=== PATIENT | female | born 1980 | race Caucasian/White ===

== ENCOUNTER 2017-03-06 10:09 | Inpatient (IN) ==
--- NOTE | 2017-03-06 11:03 | Emergency Department Note ---
Tyree Nuno Hilary, am scribing for, and in the presence of, Ralph Gayle MD 10:51. Irwin Nuno Charles R, MD, personally performed the services described in this documentation, ascribed by Martha Clements in my presence, and it is both accurate and complete . Arrival - Arrival Chief Complaint: Shortness of Breath Stated Complaint: ASTHMA ATTACK ED Nursing Triage Note: PT BROUGHT BY EMS FOR C/O COUGH AND SHORTNESS OF BREATH. PT WAS DIAGNOSED WITH BRONCHITIS LAST SATURDAY. GIVEN IV LEVAQUIN AND SOLUMEDROL SATURDAY AT [facility] ER AND HAS CONTINUED HER PO LEVAQUIN WITHOUT IMPROVEMENT. PT RECD 2 DUONEBS EN ROUTE PER EMS. Mode of Arrival: Stretcher Limitations: No Limitations Source: Patient, RN Notes Reviewed - History of Present Illness HPI Narrative: Pt is a 36 y/o female brought to the ED via EMS with c/o coughing and SOB which onset 6 days ago. Pt states that she was diagnosed with bronchitis 6 days ago and given IV Levaquin and Solumedrol 3 days ago at [facility] ER. She reports her throat closing periodically when she coughs and that her cough has not gotten better. Pt has a PMHx of Asthma. No other complaints or problems stated in the ED. Onset (ago): day(s) Consistency: constant Severity: moderate Severity scale (1-10): 2 Allergies/Adverse Reactions: Allergies Allergy/AdvReac Type Severity Reaction Status Date / Time No Known Allergies Allergy Verified 03/06/17 10:25 Home Medications: Home Medications Medication Instructions Recorded Confirmed Type Albuterol Sulfate [Proair HFA] 2 puff INH Q4H PRN 03/06/17 03/06/17 History Albuterol/Ipratropium Neb [Duoneb] 3 ml RESP TX RT Q6H PRN 03/06/17 03/06/17 History Calcium (Carbonate) [Caltrate 600] 600 mg PO QAM 03/06/17 03/06/17 History Cetirizine Tab [ZyrTEC Tab] 10 mg PO QAM 03/06/17 03/06/17 History Estradiol [Estradiol Tab] 2 mg PO QPM 03/06/17 03/06/17 History Fluticasone/Vilanterol [Breo 1 puff INH QAM 03/06/17 03/06/17 History Ellipta 100-25 Mcg INH] Ipratropium/Albuterol Inhaler 1 puff INH QID PRN 03/06/17 03/06/17 History [Combivent Respimat Inhaler] Montelukast Tab [Singulair Tab] 10 mg PO BEDTIME 03/06/17 03/06/17 History Sertraline [Zoloft] 100 mg PO QAM 03/06/17 03/06/17 History Topiramate [Trokendi XR] 200 mg PO QPM 03/06/17 03/06/17 History Ziprasidone Cap [Geodon Cap] 40 mg PO DAILY@1700 03/06/17 03/06/17 History buPROPion [Wellbutrin] 100 mg PO BID 03/06/17 03/06/17 History Review of System - Review of System 12 point system: reviewed and no additional remarkable complaints except as stated - Review of System Constitutional: Absent: fever Head/Ears/Nose/Throat: Present: sore throat, other (bronchial spasms) Respiratory: Present: cough, respiratory distress (SOB), wheezing Medical,Surgical,& Family Hx - Medical History Psychological: History of: Anxiety Disorders, Depression Neurology: History of: Migraine Respiratory: History of: Asthma, Bronchitis - Social History Smoking Status: Never smoker Frequency of Alcohol Use: None Type of Drug Use: None Exam Vital Signs: Vital Signs Temperature 97.1 F L 03/06/17 10:10 Pulse Rate 100 H 03/06/17 10:10 Respiratory Rate 18 03/06/17 10:10 Blood Pressure 93/73 03/06/17 10:10 O2 Sat by Pulse Oximetry 99 03/06/17 10:10 - General General appearance: alert, in no apparent distress - Head Head exam: Present: atraumatic, normocephalic - Eye Eye exam: Present: normal appearance, PERRL, EOMI - ENT ENT exam: Present: mucous membranes moist, TM's normal bilaterally. Absent: mucous membranes dry - Neck Neck exam: Present: full ROM, trachea midline. Absent: tenderness - Chest Chest inspection: Present: symmetric chest wall rise. Absent: tenderness - Respiratory Respiratory exam: Present: accessory muscle use, prolonged expiratory phase, wheezes. Absent: normal lung sounds bilaterally (decreased breath sounds) - Cardiovascular Cardiovascular exam: Present: regular rate, normal rhythm, normal heart sounds. Absent: murmur, rubs, gallop - Abdominal Exam Abdominal exam: Present: soft, normal bowel sounds. Absent: distention, tenderness - Extremities Exam Extremities exam: Present: full ROM, pedal edema (+1 ). Absent: tenderness - Back Exam Back exam: Present: full ROM. Absent: tenderness - Neurological Exam Neurological exam: Present: alert, oriented X3, CN II-XII intact. Absent: motor sensory deficit - Psychiatric Psychiatric exam: Present: normal affect, normal mood - Skin Skin exam: Present: warm, dry, intact, normal color. Absent: rash Course - Consultations Consultation #1: Hospitalist will admit patient Time: 12:47 Results - Labs CBC & BMP: 03/06/17 12:17 Lab Results: I have reviewed the patients labs Labs: Microbiology 03/06/17 11:32 Nasal Aspirate Influenza Types A,B Antigen (BENEDICTO) - Final Negative for Influenza A Ag Negative for Influenza B Ag Laboratory Tests 03/06/17 03/06/17 03/06/17 11:32 11:32 12:00 WBC RBC Hgb Hct Neut # (Auto) ABG Total CO2 18.8 L Urine pH 5.0 Ur Specific [place] 1.015 Urine Urobilinogen < 2.0 H Urine RBC 1 Urine WBC 1 Urine Opiates Screen Positive H Ur Barbiturates Screen Positive H Ur Phencyclidine Scrn Negative U Amphetamine/Methamph Negative U Benzodiazepines Scrn Positive H U Cocaine Metab Screen Negative U Cannabinoids Screen Negative 03/06/17 12:17 WBC 12.4 H RBC 4.37 Hgb 13.8 Hct 40.9 Neut # (Auto) 7.6 H ABG Total CO2 Urine pH Ur Specific [place] Urine Urobilinogen Urine RBC Urine WBC Urine Opiates Screen Ur Barbiturates Screen Ur Phencyclidine Scrn U Amphetamine/Methamph U Benzodiazepines Scrn U Cocaine Metab Screen U Cannabinoids Screen - Diagnostic Findings Procedure: Chest x-ray: report reviewed by me (No acute cardiopulmonary pathology) Disposition Clinical Impression: Asthma with exacerbation, Acute exacerbation of chronic obstructive airways disease, Bronchitis Case discussed with: patient Disposition: Still a Patient Condition: Stable Time of Disposition: 12:47
[2017-03-06] MEDS ORDERED: ONDANSETRON 4 MG/2 ML VIAL IV STA (11:26)
[2017-03-06] MEDS ORDERED: methylPREDNISolone SOD SUC 125 MG/2 ML VIAL IV STA (11:26)
[2017-03-06] MEDS ORDERED: MAGNESIUM SULF RIDER 2 GM in PREMIX 1 EACH IV STA (11:26)
[2017-03-06] MEDS ORDERED: SODIUM CHLORIDE 0.9% 500 ML IV STA (11:26)
--- NOTE | 2017-03-06 11:52 | XRay Report ---
Exam: XR chest 2V Date: 03/06/2017 11:27 AM Indication: Shortness of breath Comparison: 12/31/2011 Technical: PA lateral Findings: The heart, lungs, mediastinum and bony thorax reveal no acute findings. Impression: 1. No acute cardiopulmonary pathology PROCEDURE INTERPRETED AT [facility] DEPARTMENT OF RADIOLOGY Final Report Signed by: Dr. Jl Sultana
[2017-03-06 12:04] LABS: Allen Test Positive; Pt O2 Delivery Device Room Air
[2017-03-06 12:07] LABS: ABG Base Excess -2.3 MMOL/L (-2.5-2.5); ABG HCO3 22.5 MMOL/L (20-26); ABG Oxygen Saturation 97.1 % (95-100); ABG PH 7.402 (7.35-7.45); ABG PO2 92.6 MM HG (80-95); ABG TCO2 18.8 MMOL/L (23-27)
[2017-03-06 12:19] LABS: Apearance,Urine Slightly Hazy (Clear); Bacteria,Urine Occasional /HPF (Few); Bilirubin,Urine Negative (Negative); Blood, Urine Negative (Negative); Glucose,Urine (UA) Negative (Negative); Ketones,Urine Negative (Negative); Mucus,Urine Occasional /LPF (Occasional); Nitrite,Urine Negative (Negative); Protein,Urine Negative; RBC,Urine 1 /HPF (0-4); Squamous Epithelial Cell,Urine Occasional /HPF (0-10); Urine Color Yellow (Yellow); Urine Specific Gravity 1.015 (1.001-1.035); Urine Urobilinogen < 2.0 EU/DL (0.2-1.0); WBC,Urine 1 /HPF (0-6)
[2017-03-06] MEDS ORDERED: methylPREDNISolone SOD SUC 125 MG/2 ML VIAL ONE (12:21)
[2017-03-06] MEDS ORDERED: ONDANSETRON 4 MG/2 ML VIAL ONE (12:21)
[2017-03-06] MEDS ORDERED: MAGNESIUM SULF RIDER 50 ML IV ONE (12:22)
[2017-03-06 12:28] LABS: Basophils # 0.1 10*3/uL (0.0-0.2); Basophils % 0.7 % (0.0-0.8); Eosinophils # 0.1 10*3/uL (0.0-0.87); Eosinophils % 0.7 % (0.00-10.9); Hematocrit 40.9 VOL% (35.7-47.0); Hemoglobin 13.8 GM/DL (12.0-16.0); Immature Granulocytes % 0.8 %; Lymphocytes # 3.9 10*3/uL (1.4-4.0); Lymphocytes % 31.2 % (21.3-54.2); Mean Corpuscular HGB Conc 33.7 GM/DL (32-36); Mean Corpuscular Hemoglobin 32 PG (27-34); Mean Corpuscular Volume 93.6 FL (87-102); Mean Platelet Volume 9.8 FL (9.6-12.0); Monocytes # 0.7 10*3/uL (0.11-0.8); Monocytes % 5.5 % (1.7-12.7); Neutrophils # 7.6 10*3/uL (1.4-7.4); Neutrophils % 61.1 % (38.7-73.9); Platelet Count 342 T/CUMM (130-400); Red Blood Count 4.37 MC/CUMM (3.8-5.5); Red Cell Distribution Width 13.8 % (9.3-17.3); White Blood Count 12.4 T/CUMM (4-12)
[2017-03-06 12:32] LABS: Barbiturates Screen,Urine Positive (Negative); Benzodiazepines Screen,Urine Positive (Negative); Cannabinoid Screen,Urine Negative (Negative); Opiate Screen,Urine Positive (Negative); Phencyclidine Screen,Urine Negative (Negative)
--- NOTE | 2017-03-06 12:48 | EKG Report ---
Stationary ECG Study [facility] ER Test Date: 03/06/2017 12:39:44 PM Pat Name: ALVA HOUSTON Department: Room: Gender: F Wrist Closer: : 1980 Requested by: Ralph Medellin Order Number: [id number] Reading MD: RADHA CEJA Intervals [place] Rate: 91 P: 45 [place]: 126 QRS: 41 QRSD: 85 T: 1 QT: 340 QTc: 389 Interpretive Statements SINUS RHYTHM Electronically Signed On 03-06-17 14:43:15 CDT by RADHA CEJA [email or web address]
[2017-03-06] MEDS ORDERED: cefTRIAXone 1,000 MG in SODIUM CHLORIDE 0.9% 100 ML IV STA (12:49)
[2017-03-06 13:07] LABS: Alanine Aminotransferase 32 U/L (13-56); Albumin 3.7 G/DL (3.4-5.0); Alkaline Phosphatase 84 U/L (45-117); Aspartate Amino Transferase 19 U/L (0-37); Bilirubin,Total < 0.39 MG/DL (0.2-1.0); Blood Urea Nitrogen 22 MG/DL (7-18); Calcium 9.4 MG/DL (8.5-10.1); Glucose 87 MG/DL (74-106); Magnesium 2.3 MG/DL (1.8-2.4); Osmolality,Calculated 278.5 MOS/KG (273-304); Potassium 3.9 MMOL/L (3.5-5.1); Sodium 139 MMOL/L (136-145); Total Protein 7.2 G/DL (6.4-8.3); Troponin I Only < 0.015 NG/ML (0.00-0.045)
--- NOTE | 2017-03-06 13:32 | Hospitalist History & Physical ---
Assessment and Plan - Time spent with patient Time spent with patient: Greater than 30 minutes (1) Asthma with exacerbation Status: Acute Assessment and plan: Admit for observation 03/06/17 Start duonebs IV steroids IV antibiotics will discuss further with Dr Moyer for further recommendations with care. Current Visit: Yes (2) Bronchitis Status: Acute Current Visit: Yes History of Present Illness Chief complaint: shortness of breath/asthma exac. History of present illness: Ms. Izaguirre is a 36 year old white female wPMHx of anxiety, depression, Asthma, Bronchitis, Migraine presented to the ED for further evaluation of worsening shortness of breath since Saturday with non-productive cough and feeling "airway/ throat tightness". She reports this a.m about 3 she felt like "I could not get my breath in" and could not stop coughing. She reports seeing PCP at clinic on and was diagnosis with bronchitis HOWEVER, over the weekend, she continued to get worse and went to the ED and they placed her on Levaquin and solumedrol. She denies chest pain, fever, or chills. IN ED: No acute cardiopulmonary path. LABS significant: WBC 12.4, BUN 22 & Creatinine 1.20, Toxicology positive for Opiates, Barbiturates and Benzodiazepines. At exam HR 100, O2 SAT 100% on Room Air, BP 114/82. Denies smoking, alcohol use and drug use. PCP: Dr García Flu Vaccine: yearly After discussion with Dr Gayle in the ED and Dr Moyer with Hospital Services, it was agreed to admit patient for observation. Home medications to reviewed and reconciliation to follow. Home Medications Medication Instructions Recorded Confirmed Type Albuterol Sulfate [Proair HFA] 2 puff INH Q4H PRN 03/06/17 03/06/17 History Albuterol/Ipratropium Neb [Duoneb] 3 ml RESP TX RT Q6H PRN 03/06/17 03/06/17 History Calcium (Carbonate) [Caltrate 600] 600 mg PO QAM 03/06/17 03/06/17 History Cetirizine Tab [ZyrTEC Tab] 10 mg PO QAM 03/06/17 03/06/17 History Estradiol [Estradiol Tab] 2 mg PO QPM 03/06/17 03/06/17 History Fluticasone/Vilanterol [Breo 1 puff INH QAM 03/06/17 03/06/17 History Ellipta 100-25 Mcg INH] Ipratropium/Albuterol Inhaler 1 puff INH QID PRN 03/06/17 03/06/17 History [Combivent Respimat Inhaler] Montelukast Tab [Singulair Tab] 10 mg PO BEDTIME 03/06/17 03/06/17 History Sertraline [Zoloft] 100 mg PO QAM 03/06/17 03/06/17 History Topiramate [Trokendi XR] 200 mg PO QPM 03/06/17 03/06/17 History Ziprasidone Cap [Geodon Cap] 40 mg PO DAILY@1700 03/06/17 03/06/17 History buPROPion [Wellbutrin] 100 mg PO BID 03/06/17 03/06/17 History Allergies Allergy/AdvReac Type Severity Reaction Status Date / Time No Known Allergies Allergy Verified 03/06/17 10:25 Medical,Surgical,& Family Hx - Medical History Psychological: History of: Anxiety Disorders, Depression Neurology: History of: Migraine Respiratory: History of: Asthma, Bronchitis - Surgical History Additional Surgical History: Facial reconstruction at age 16 y/o - Social History Smoking Status: Never smoker Frequency of Alcohol Use: None Type of Drug Use: None Marital Status: Single Lives With:: Mother and grandmother live with her Functional capacity: independent ambulation 12 point system: reviewed and no additional remarkable complaints except as stated - Constitutional Constitutional: Present: fatigue. Absent: chills, fever(s) - EENT Nose, mouth and throat: Absent: hoarseness, sore throat - Cardiovascular Cardiovascular: Present: dyspnea. Absent: chest pain at rest, chest pain with activity - Respiratory Respiratory: Present: dyspnea, wheezing. Absent: change in phlegm color - Psychiatric Psychiatric: Absent: anxiety Exam - Constitutional Vitals: Period Temp Pulse Resp BP Sys/Garcia Pulse Ox Last 24 Hr 97.1 F-97.1 F 100-100 18-18 93-93/73-73 99 General appearance: no acute distress, over weight - Head Head exam: Present: normal inspection - Eye Eye exam: Present: EOMI Pupils: Present: DARIUSZ - Neck Neck exam: Present: normal inspection - Respiratory Respiratory exam: Present: wheezes (expiratory) - Cardiovascular Cardiovascular exam: Present: regular rate and rhythm - GI/Abdominal GI/Abdominal exam: Present: normal bowel sounds, soft. Absent: tenderness, rebound - Extremities Exam Extremities exam: Present: full ROM. Absent: edema - Neurological Exam Neurological exam: Present: alert, oriented X3 - Psychiatric Psychiatric exam: Present: normal affect, normal mood. Absent: agitated, anxious - Skin Skin exam: Present: normal color, warm, dry Results - Labs CBC & BMP: 03/06/17 12:17 03/06/17 12:17 Lab Results: I have reviewed the past 24 hour labs Labs: Troponin negative - Diagnostic Findings Procedure: Chest x-ray: report reviewed by me (no acute cardiopulmonary pathology)
[2017-03-06] MEDS ORDERED: cefTRIAXone 1,000 MG VIAL ONE (13:54)
[2017-03-06] MEDS ORDERED: methylPREDNISolone SOD SUC 125 MG/2 ML VIAL IV SCH (14:00)
[2017-03-06] MEDS ORDERED: HYDROcod/ACETAMIN 7.5-325 MG/15 ML UDCUP ONE (14:07)
[2017-03-06] MEDS ORDERED: HYDROcod/ACETAMIN 7.5-325 MG/15 ML UDCUP PO STA (14:10)
[2017-03-06] MEDS ORDERED: GLUCAGON 1 MG VIAL IM PRN (14:52)
[2017-03-06] MEDS ORDERED: ACETAMINOPHEN 325 MG TABLET PO PRN (14:52)
[2017-03-06] MEDS ORDERED: DEXTROSE 50% 25 GM/50 ML SYRINGE IV PRN (14:52)
[2017-03-06] MEDS ORDERED: ONDANSETRON 4 MG/2 ML VIAL IV PRN (14:52)
[2017-03-06] MEDS: methylPREDNISolone SOD SUC 125 MG/2 ML VIAL IV SCH (15:24)
[2017-03-06] MEDS: ALBUTEROL/IPRATROPIUM 3 ML NEB RESP TX PRN (15:28)
--- NOTE | 2017-03-06 15:53 | Pulmonology Consult Note ---
Assessment and Plan (1) Migraine headache Status: Acute Assessment and plan: On a long list of medications for this. Defer to primary service or neurology if needed. Current Visit: Yes (2) Asthma with exacerbation Status: Acute Assessment and plan: Patient does not sound bad. Would treat with relatively low-dose Solu-Medrol as well as bronchodilators and empiric antibiotics. She is already been on some steroids and antibiotics for 3 or 4 days. Current Visit: Yes (3) Bronchitis Status: Acute Assessment and plan: She tends to have a chronic cough. Treat it as you with the asthma. Will try her on Delsym for cough suppression. Want to stay away from narcotic cough medicines if we can. Current Visit: Yes (4) Anxiety Status: Acute Assessment and plan: Continuing anti-anxiety medications. May get a little worse on the steroids Current Visit: Yes History of Present Illness Chief complaint: Cough congestion shortness of breath History of present illness: Ms. Izaguirre is a 36 year old female whom I have seen before. She was in the office 2 months ago with an exacerbation of her mild intermittent asthma. She is now on Breo regularly. She is a non-smoker. She has apparently pretty bad problems with migraines and is only a very long list of medications for that and anxiety. She developed a cough and congestion going on the last 3 or 4 days and has seen doctors in the office and emergency room just is not better. She has not had any fever or chills. She has not had any chest pain. She has a difficult time sleeping because of the cough. It is for the most part nonproductive. Home Medications Medication Instructions Recorded Confirmed Type Albuterol Sulfate [Proair HFA] 2 puff INH Q4H PRN 03/06/17 03/06/17 History Albuterol/Ipratropium Neb [Duoneb] 3 ml RESP TX RT Q6H PRN 03/06/17 03/06/17 History Calcium (Carbonate) [Caltrate 600] 600 mg PO QAM 03/06/17 03/06/17 History Cetirizine Tab [ZyrTEC Tab] 10 mg PO QAM 03/06/17 03/06/17 History Estradiol [Estradiol Tab] 2 mg PO QPM 03/06/17 03/06/17 History Fluticasone/Vilanterol [Breo 1 puff INH QAM 03/06/17 03/06/17 History Ellipta 100-25 Mcg INH] Ipratropium/Albuterol Inhaler 1 puff INH QID PRN 03/06/17 03/06/17 History [Combivent Respimat Inhaler] Montelukast Tab [Singulair Tab] 10 mg PO BEDTIME 03/06/17 03/06/17 History Sertraline [Zoloft] 100 mg PO QAM 03/06/17 03/06/17 History Topiramate [Trokendi XR] 200 mg PO QPM 03/06/17 03/06/17 History Ziprasidone Cap [Geodon Cap] 40 mg PO DAILY@1700 03/06/17 03/06/17 History buPROPion [Wellbutrin] 100 mg PO BID 03/06/17 03/06/17 History Allergies Allergy/AdvReac Type Severity Reaction Status Date / Time No Known Allergies Allergy Verified 03/06/17 10:25 12 point system: reviewed and no additional remarkable complaints except as stated - Constitutional Constitutional: Present: fatigue, headache(s) - EENT Nose, mouth and throat: Present: nasal congestion - Cardiovascular Cardiovascular: Present: dyspnea, dyspnea on exertion - Respiratory Respiratory: Present: cough, dyspnea, dyspnea on exertion, wheezing - Musculoskeletal Musculoskeletal: Present: arthralgias, myalgias - Neurological Neurological: Present: headache(s) (Has migraine headaches) - Psychiatric Psychiatric: Present: anxiety, depression Exam (Pulmonay) H&P - Constitutional Vitals: Period Temp Pulse Resp BP Sys/Garcia Pulse Ox Last 24 Hr 97.0 F-97.1 F 79-111 16-20 92-135/51-113 95-100 Exam: Patient's alert oriented somewhat anxious. Vital signs are normal. Pupils react to light. Throat is clear. Neck supple no bruits. Chest is clear. I do not hear any wheezes. Expiratory phase is slightly prolonged. Heart normal rate and rhythm no murmurs no rubs no gallops. Abdomen soft nontender no masses. Extremities no clubbing cyanosis or edema. Calves nontender. Medical,Surgical,& Family Hx - Medical History Psychological: History of: Anxiety Disorders, Depression Neurology: History of: Migraine Respiratory: History of: Asthma, Bronchitis - Family History Family History: Reports;: Family Hypertension - Social History Smoking Status: Never smoker Frequency of Alcohol Use: None Type of Drug Use: None Results - Labs CBC & BMP: 03/06/17 12:17 03/06/17 12:17 Lab Results: I have reviewed the past 24 hour labs - Diagnostic Findings Procedure: Chest x-ray: image reviewed by me (Chest x-ray is clear and within normal limits.)
[2017-03-06] MEDS: PANTOPRAZOLE 40 MG TABLET PO SCH (16:05)
[2017-03-06] MEDS: LEVOFLOXACIN INJ 500 MG in PREMIX 1 EACH IV SCH (16:34)
[2017-03-06] MEDS: SODIUM CHLORIDE 0.9% 1,000 ML IV SCH (16:34)
[2017-03-06] MEDS: ZIPRASIDONE 20 MG CAPSULE PO SCH (16:35)
[2017-03-06] MEDS: INSULIN LISPRO 100 UNIT/ML SUBCUT SCH ×2 (17:44→20:58)
[2017-03-06] MEDS: DEXTROMETHORPHAN ER 6 MG/ML 90 ML/BOTTLE PO PRN (18:11)
[2017-03-06] MEDS: ALBUTEROL/IPRATROPIUM 3 ML NEB RESP TX SCH (18:17)
--- NOTE | 2017-03-06 18:27 | XRay Report ---
XR sinus Clinical Information: Chronic sinusitis and cough Comparison: None Findings: Postsurgical changes are noted at both maxillary sinuses, possibly related to prior facial trauma. Orbits appear intact. Paranasal sinuses otherwise appear clear. There is no suspicious osseous or soft tissue lesion identified. Impression: Negative study PROCEDURE INTERPRETED AT [facility] DEPARTMENT OF RADIOLOGY Final Report Signed by: Emre Gregorio
[2017-03-06] MEDS: MONTELUKAST 10 MG TABLET PO SCH (20:59)
[2017-03-06] MEDS: buPROPion 100 MG TABLET PO SCH (20:59)
[2017-03-06] MEDS: CETIRIZINE 10 MG TABLET PO SCH (20:59)
[2017-03-06] MEDS: ESTRADIOL 2 MG TABLET PO SCH (21:00)
[2017-03-06] MEDS: ENOXAPARIN 40 MG/0.4 ML SYRINGE SUBCUT SCH (21:00)
[2017-03-06] MEDS ORDERED: TROKENDI 200 MG PO SCH (21:00)
[2017-03-07] MEDS: ALBUTEROL/IPRATROPIUM 3 ML NEB RESP TX SCH ×4 (01:34→19:20)
[2017-03-07] MEDS: SODIUM CHLORIDE 0.9% 1,000 ML IV SCH ×3 (01:38→10:26)
[2017-03-07] MEDS: methylPREDNISolone SOD SUC 125 MG/2 ML VIAL IV SCH (02:18)
[2017-03-07] MEDS: DEXTROMETHORPHAN ER 6 MG/ML 90 ML/BOTTLE PO PRN ×2 (02:21→16:05)
[2017-03-07 06:37] LABS: Basophils % 0.2 % (0.0-0.8); Hematocrit 38.2 VOL% (35.7-47.0); Hemoglobin 12.7 GM/DL (12.0-16.0); Immature Granulocytes % 0.9 %; Immature Granulocytes Absolute 0.11 #; Lymphocytes # 1.2 10*3/uL (1.4-4.0); Lymphocytes % 9.3 % (21.3-54.2); Mean Corpuscular HGB Conc 33.2 GM/DL (32-36); Mean Corpuscular Hemoglobin 32 PG (27-34); Mean Corpuscular Volume 95.5 FL (87-102); Mean Platelet Volume 9.8 FL (9.6-12.0); Monocytes # 0.4 10*3/uL (0.11-0.8); Neutrophils # 10.9 10*3/uL (1.4-7.4); Neutrophils % 86.6 % (38.7-73.9); Platelet Count 329 T/CUMM (130-400); Red Cell Distribution Width 14.1 % (9.3-17.3); White Blood Count 12.6 T/CUMM (4-12)
[2017-03-07 07:01] LABS: Calcium 8.1 MG/DL (8.5-10.1); Magnesium 2.8 MG/DL (1.8-2.4); Osmolality,Calculated 285.1 MOS/KG (273-304); Potassium 4.2 MMOL/L (3.5-5.1)
[2017-03-07] MEDS: INSULIN LISPRO 100 UNIT/ML SUBCUT SCH ×4 (08:31→20:20)
--- NOTE | 2017-03-07 08:36 | Pulmonology Progress Note ---
Pulmonary - PN: Subj Interval history: 36-year-old lady with mild intermittent asthma that is had a persistent cough. Lungs sound all right and her chest x-ray looks good. Sinus x-ray was normal. Cough is a little less after adding chlorpheniramine and Delsym last night. Patient is alert and generally feels better. Exam (Progress Note) - Constitutional Vitals: Period Temp Pulse Resp BP Sys/Garcia Pulse Ox Last 24 Hr 97.0 F-97.4 F 71-111 16-20 92-135/51-113 92-100 Exam: Patient's alert oriented. Vital signs listed normal. Pupils react to light. Throat is clear. Neck is supple no bruits. Chest reveals prolonged expiratory phase but no active wheezing. Heart normal rate rhythm no murmurs. Abdomen soft nontender no masses. Extremities no clubbing cyanosis or edema. Calves nontender. Results - Labs CBC & BMP: 03/07/17 05:41 03/07/17 05:41 Lab Results: I have reviewed the past 24 hour labs Assessment and Plan (1) Migraine headache Status: Acute Assessment and plan: On a long list of medications for this. Defer to primary service or neurology if needed. Current Visit: Yes (2) Asthma with exacerbation Status: Acute Assessment and plan: Patient does not sound bad. Would treat with relatively low-dose Solu-Medrol as well as bronchodilators and empiric antibiotics. She is already been on some steroids and antibiotics for 3 or 4 days. 03/07/2017 no active bronchospasm. Tapering steroids. Current Visit: Yes (3) Bronchitis Status: Acute Assessment and plan: She tends to have a chronic cough. Treat it as you with the asthma. Will try her on Delsym for cough suppression. Want to stay away from narcotic cough medicines if we can. 03/07/2017 treating cough with nonspecific cough suppressants. This in addition to asthma meds. Current Visit: Yes (4) Anxiety Status: Acute Assessment and plan: Continuing anti-anxiety medications. May get a little worse on the steroids 03/07/2017 does not appear as anxious today. Current Visit: Yes
[2017-03-07] MEDS: CALCIUM (CARBONATE) 600 MG TABLET PO SCH (08:56)
[2017-03-07] MEDS: buPROPion 100 MG TABLET PO SCH ×2 (08:57→20:20)
[2017-03-07] MEDS: SERTRALINE 100 MG TABLET PO SCH (08:57)
[2017-03-07] MEDS: PANTOPRAZOLE 40 MG TABLET PO SCH (08:57)
[2017-03-07] MEDS ORDERED: BREO ELLIPTA INH SCH (09:00)
--- NOTE | 2017-03-07 10:08 | Hospitalist Progress Note ---
Assessment and Plan - Time spent with patient Time spent with patient: Less than 30 minutes (1) Asthma with exacerbation Status: Acute Assessment and plan: 36-year-old white female with history of anxiety, depression, asthma, and migraines admitted by the hospitalist service on 03/06/2017 with acute bronchitis and asthma exacerbation. She was started on duo nebs, steroids, and antibiotics. She did have mild air trapping and moderate wheezing upon admission but the wheezing has resolved. She still has air trapping and tightness but improved from yesterday. She is afebrile and vital signs are stable and her labs look okay. Dr. Talbert from pulmonary has seen the patient and is treating with low-dose Solu-Medrol as well as bronchodilators and an antibiotic. He is also treating her cough with nonspecific cough suppressants. Patient is still short of breath so will recommend 1 more day of IV treatment and possibly home in the morning. Dr. Rodriguez will see and examine patient and further recommendations to follow. Current Visit: Yes (2) Bronchitis Status: Acute Current Visit: Yes Hospitalist: Subjective Interval history: Patient feels much better today. She is still having some shortness of breath but it feels better than it did upon admission. She states Dr. Talbert saw her this morning. Exam - Constitutional Vitals: Period Temp Pulse Resp BP Sys/Garcia Pulse Ox Last 24 Hr 97.0 F-97.4 F 71-111 16-20 92-135/51-113 92-100 Exam: 36-year-old white female, no acute distress, alert and oriented Chest with moderate air trapping, no wheezing CV regular rate and rhythm Abdomen soft and nontender Extremities no edema Results - Labs CBC & BMP: 03/07/17 05:41 03/07/17 05:41 Lab Results: I have reviewed the past 24 hour labs
[2017-03-07] MEDS: ALBUTEROL/IPRATROPIUM 3 ML NEB RESP TX PRN (11:15)
[2017-03-07] MEDS: LEVOFLOXACIN INJ 500 MG in PREMIX 1 EACH IV SCH (17:08)
[2017-03-07] MEDS: ZIPRASIDONE 20 MG CAPSULE PO SCH (17:37)
[2017-03-07] MEDS: ENOXAPARIN 40 MG/0.4 ML SYRINGE SUBCUT SCH (20:20)
[2017-03-07] MEDS: ESTRADIOL 2 MG TABLET PO SCH (20:20)
[2017-03-07] MEDS: MONTELUKAST 10 MG TABLET PO SCH (20:20)
[2017-03-07] MEDS: CETIRIZINE 10 MG TABLET PO SCH (20:21)
[2017-03-08] MEDS ORDERED: methylPREDNISolone SOD SUC 40 MG/1 ML VIAL IV SCH
[2017-03-08] MEDS: ALBUTEROL/IPRATROPIUM 3 ML NEB RESP TX SCH ×2 (00:38→06:14)
[2017-03-08] MEDS: SODIUM CHLORIDE 0.9% 1,000 ML IV SCH ×2 (02:17→08:04)
[2017-03-08] MEDS: DEXTROMETHORPHAN ER 6 MG/ML 90 ML/BOTTLE PO PRN (03:03)
--- NOTE | 2017-03-08 07:12 | Pulmonology Progress Note ---
Pulmonary - PN: Subj Interval history: 36-year-old lady with mild intermittent asthma that is had a persistent cough. Lungs sound all right and her chest x-ray looks good. Sinus x-ray was normal. Cough is a little less after adding chlorpheniramine and Delsym last night. Patient is alert and generally feels better. 03/08/2017 patient's cough is a little better. Slept a little better last night. Said she had the sensation of her airway closing off after a deep cough this morning but it only lasted a second or 2. Her lungs are sounding absolutely clear. There is a good bit of anxiety involved. Exam (Progress Note) - Constitutional Vitals: Period Temp Pulse Resp BP Sys/Garcia Pulse Ox Last 24 Hr 97.3 F-98.3 F 73-100 14-20 94-133/53-74 93-99 Exam: Patient's alert oriented. Vital signs listed normal. Pupils react to light. Throat is clear. Neck is supple no bruits. Chest reveals prolonged expiratory phase but no active wheezing. Heart normal rate rhythm no murmurs. Abdomen soft nontender no masses. Extremities no clubbing cyanosis or edema. Calves nontender. Results - Labs CBC & BMP: 03/07/17 05:41 03/07/17 05:41 Lab Results: I have reviewed the past 24 hour labs Assessment and Plan (1) Migraine headache Status: Acute Assessment and plan: On a long list of medications for this. Defer to primary service or neurology if needed. Current Visit: Yes (2) Asthma with exacerbation Status: Acute Assessment and plan: Patient does not sound bad. Would treat with relatively low-dose Solu-Medrol as well as bronchodilators and empiric antibiotics. She is already been on some steroids and antibiotics for 3 or 4 days. 03/07/2017 no active bronchospasm. Tapering steroids. 03/08/2017 again no active bronchospasm. Taper steroids. Patient has sensation of airway closing after a prolonged cough. Continuing treatment for bronchitis , nonspecific cough, and asthma although there is no active bronchospasm. Certainly some anxiety involved. Current Visit: Yes (3) Bronchitis Status: Acute Assessment and plan: She tends to have a chronic cough. Treat it as you with the asthma. Will try her on Delsym for cough suppression. Want to stay away from narcotic cough medicines if we can. 03/07/2017 treating cough with nonspecific cough suppressants. This in addition to asthma meds. 03/08/2017 continuing cough suppressants. Chlorpheniramine and Delsym. Current Visit: Yes (4) Anxiety Status: Acute Assessment and plan: Continuing anti-anxiety medications. May get a little worse on the steroids 03/07/2017 does not appear as anxious today. 03/08/2017 defer to primary service. The sensation of airway closing off I think is aggravated by her anxiety. Current Visit: Yes
[2017-03-08] MEDS: INSULIN LISPRO 100 UNIT/ML SUBCUT SCH ×2 (08:04→10:43)
[2017-03-08] MEDS: CALCIUM (CARBONATE) 600 MG TABLET PO SCH (09:12)
[2017-03-08] MEDS: SERTRALINE 100 MG TABLET PO SCH (09:12)
[2017-03-08] MEDS: PANTOPRAZOLE 40 MG TABLET PO SCH (09:12)
[2017-03-08] MEDS: buPROPion 100 MG TABLET PO SCH (09:12)
--- NOTE | 2017-03-08 10:55 | Discharge Summary ---
Hospital Course - Hospital Course Hospital Course: 36-year-old white female with history of anxiety, depression, asthma, migraines admitted by the hospitalist service on 03/06/2017 with acute bronchitis and asthma exacerbation. She was started on duo nebs, steroids, and antibiotics. She did have mild air trapping and moderate wheezing upon admission and this seems to have resolved. Patient feels so much better and she is tolerating a diet with no audible wheezing. She has been afebrile and her vital signs are stable and her labs are relatively normal. Dr. Talbert from pulmonary has seen the patient and treated her with low-dose Solu-Medrol and bronchodilators. He is now tapering her steroids and treating her with cough suppressants. Patient will be discharged home with a follow-up appointment with Dr. García her PCP and Dr. Talbert. She will be restarted on her home medications and will add albuterol inhaler as needed. Patient also will get a prescription for Xanax as needed for her anxiety issues. Complete discharge instructions were given. Care coordination, chart review, and completed discharge paperwork took approximately 42 minutes. - Time spent with patient Time with patient DS: Greater than 30 minutes Diagnosis - Discharge Diagnosis (1) Asthma with exacerbation Status: Resolved (2) Bronchitis Status: Resolved Discharge Plan - Discharge Data Disposition: Disch To Home/Self Care Condition at Discharge: Stable Discharge Diet: advance to your usual diet Activity: resume usual activities as tolerated Driving: no restrictions Contact your physician if you experience:: fever over 101, Shortness of breath - Discharge Medications New Albuterol/Ipratropium Neb [Duoneb] 3 ml RESP TX RT Q6H Albuterol Inhaler [Proventil Inhaler] 2 puff INH Q4H PRN #1 inhaler PRN Reason: Shortness Of Breath/Wheezing Dextromethorphan ER Liquid [Delsym] 60 mg PO BID PRN #1 bottle PRN Reason: Cough Continue Albuterol/Ipratropium Neb [Duoneb] 3 ml RESP TX RT Q6H PRN PRN Reason: Shortness Of Breath/Wheezing Montelukast Tab [Singulair Tab] 10 mg PO BEDTIME Ipratropium/Albuterol Inhaler [Combivent Respimat Inhaler] 1 puff INH QID PRN PRN Reason: Shortness Of Breath/Wheezing Estradiol [Estradiol Tab] 2 mg PO QPM Topiramate [Trokendi XR] 200 mg PO QPM Fluticasone/Vilanterol [Breo Ellipta 100-25 Mcg INH] 1 puff INH QAM buPROPion [Wellbutrin] 100 mg PO BID Calcium (Carbonate) [Caltrate 600] 600 mg PO QAM Sertraline [Zoloft] 100 mg PO QAM Cetirizine Tab [ZyrTEC Tab] 10 mg PO QAM Vitamin B Complex 1 tablet PO DAILY ALPRAZolam [Xanax] 1 tablet PO BID #14 Ziprasidone Cap [Geodon Cap] 40 mg PO DAILY@1700 Estradiol [Estradiol Tab] 1 applic .ROUTE DAILY Ipratropium/Albuterol Inhaler [Combivent Respimat Inhaler] 1 puff INH QID PRN PRN Reason: Cough Mometasone/Formoterol 200-5 [Dulera 200-5] 2 puffs INH BID Butalb/Acetaminophen/Caffeine [Xcfbtpim-Ucuutdqmnnxye-Ychu Cp] 1 tablet PO Q4HR PRN PRN Reason: Migraine Headache - Follow Up or Referral Follow Up: Rustam Talbert MD [Physician] - 1 Month deedee young [Other] - 2 Weeks - Forms/Instructions Exam - Constitutional Vitals: Period Temp Pulse Resp BP Sys/Garcia Pulse Ox Last 24 Hr 97.3 F-98.4 F 80-100 14-20 94-133/53-74 93-99 Exam: 36-year-old white female, no acute distress, alert and oriented Chest clear CV regular rate and rhythm Abdomen obese, nontender Extremities no edema Discharge Results Procedures and tests throughout hospitalization: Pending Orders 03/06/17 12:04 Blood Culture Stat Labs on day of discharge: Preliminary micro results at discharge 03/06/17 12:04 Blood Culture - Preliminary Blood No growth at 1 day 03/06/17 12:04 Blood Culture - Preliminary Blood No growth at 1 day DS: Provider Date of admission: 03/06/17 12:52 Primary care physician: . No PCP Attending physician on admission: Loki Moyer MD Consults: 03/06/17 14:52 Consult to Physician [CONS] Routine Comment: asthma Consulting Provider: Rustam Talbert Person Notified: [email or web address] Date Notified: 03/06/17 Time Notified: 15:25 Consult Notification Comment: 03/06/17 15:43 Consult to Pastoral Services [CONS] Routine Comment: Pastoral Screen: Request Heating Unit Installer Visit Discharging clinician: REAGAN Valenzuela Expected date of discharge: 03/08/17
[2017-03-08 11:18] VITALS: BP 110/73
--- NOTE | 2017-03-18 09:02 | Physician Query Form ---
CLICK EDIT DOCUMENT TO SELECT QUERY ANSWER --> OK --> SIGN Jil Atkins RN, CCDS Certified Clinical Top Frame Maker W) [phone] (f) [phone] [email or web address]: Make your selection(s) from the choices in EACH section by typing an "x" and enter comments in the comment section. Please use your independent medical judgment in providing your response. This request does not imply that any particular answer is desired or expected. CLINICAL INDICATORS: (Providers should not edit this section) The medical record indicates that the patient was admitted with Asthma Exacerbation, History of Bronchitis, "Acute exacerbation of chronic obstructive airways disease" per ER note and the patient was treated with Duoneb/ Ceftriaxone. Based on the above, could you clarify the appropriate diagnosis, if significant , that supports the above abnormalities and additional evaluation, monitoring, and/or treatment rendered: ( ) Patient was treated for Asthma exacerbation and COPD exacerbation ( ) Patient was treated for Asthma exacerbation only ( ) Patient was treated for Asthma exacerbation with chronic Bronchitis ( x) Patient was treated for Asthma exacerbation with Acute Bronchitis ( ) Other, please specify: ( ) Clinically unable to determine COMMENTS: PLEASE ALSO DOCUMENT RESPONSE IN PROGRESS NOTES AND/OR DISCHARGE SUMMARY Use of terms such as suspected, likely, or probable (associated with a specific diagnosis that is being evaluated, monitored, or treated as if it exists) are acceptable and can be restated in the discharge summary if not ruled out. MTDD
== END 2017-03-08 12:55 | disposition home or self-care (01) | DRG 202 ==
LOC: EDUNIT# → EDBD → N.ED 10:09 → N.EDINP 10:09 → SUATTDRO 12:52 → OBSVTOIN 12:52 → N.5E 14:39
PROVIDERS: ADMIT Internal Medicine; ATTEND Hospitalist